=== PATIENT | female | born 1985 | race Caucasian/White ===

== ENCOUNTER → 2022-10-08 | Outpatient (CLI) | payer OTHER, SELFPAY ==
[2022-10-08 11:27] LABS: Progesterone Level 0.76 ng/mL (See Comment); hCG Titer Quant., Serum < 1 mIU/mL (1-3)
[2022-10-08 11:33] LABS: Estradiol 55.4 pg/mL; Follicle Stimulating Hormone 8.3 mIU/mL; Luteinizing Hormone 5.6 mIU/mL; Thyroid Stim Hormone (TSH) 1.17 uIU/mL (0.358-3.74)
== END | disposition home or self-care (01) ==
PROVIDERS: Referring Provider Obstetrics & Gynecology Reproductive Endocrinology; Visit Provider Obstetrics & Gynecology Reproductive Endocrinology
DX: Z31.83 Encounter for assisted reproductive fertility procedure cycle (principal)
CPT/HCPCS: 36415; 82670; 83001; 83002; 84144; 84443; 84702

== ENCOUNTER → 2022-10-14 | Outpatient (CLI) | payer OTHER, SELFPAY ==
[2022-10-14 13:37] LABS: Estradiol 306.1 pg/mL; Luteinizing Hormone 7.4 mIU/mL
[2022-10-14 13:38] LABS: Progesterone Level 0.29 ng/mL (See Comment)
== END | disposition home or self-care (01) ==
LOC: WOBLAB 11:56
PROVIDERS: Visit Provider Obstetrics & Gynecology Reproductive Endocrinology
DX: Z31.83 Encounter for assisted reproductive fertility procedure cycle (principal)
CPT/HCPCS: 36415; 82670; 83002; 84144

== ENCOUNTER → 2022-11-12 | Outpatient (CLI) | payer OTHER, SELFPAY ==
[2022-11-12 12:32] LABS: Progesterone Level 62.88 ng/mL (See Comment)
[2022-11-12 12:53] LABS: hCG Titer Quant., Serum 6250 mIU/mL (1-3)
[2022-11-13 09:57] LABS: Estradiol 117.7 pg/mL
== END | disposition home or self-care (01) ==
LOC: WOBLAB 11:01
PROVIDERS: Visit Provider Obstetrics & Gynecology Reproductive Endocrinology
DX: O09.00 Supervision of pregnancy with history of infertility, unspecified trimester (principal)
CPT/HCPCS: 36415; 82670; 84144; 84702